=== PATIENT | female | born 1955 | race Hispanic/Latino ===

== ENCOUNTER 2019-07-03 21:31 | Emergency (ER) | payer OTHER, MEDICARE ==
[2019-07-03] MEDS ORDERED: OXYCODONE/ACETAMIN 5/325MG TAB ONE (22:24)
== END 2019-07-03 23:24 | disposition home or self-care (01) ==
LOC: EDH 21:31
DX: S16.1XXA Strain of muscle, fascia and tendon at neck level, initial encounter (principal); Z88.0 Allergy status to penicillin; I10 Essential (primary) hypertension; F32.9 Major depressive disorder, single episode, unspecified; V73.6XXA Passenger on bus injured in collision with car, pick-up truck or van in traffic accident, initial encounter; Y93.89 Activity, other specified; Y92.89 Other specified places as the place of occurrence of the external cause; Y99.8 Other external cause status
CPT/HCPCS: 70450; 72125